=== PATIENT | male | born 1980 | race Caucasian/White ===

== ENCOUNTER 2022-07-19 12:48 | Emergency (ER) | payer OTHER, SELFPAY ==
--- NOTE | ~2022-07-19 | CT_ITS ---
EXAMINATION: CT brain wo con DATE: 07/19/2022 13:44 INDICATION: Head injury. TECHNIQUE: Computed tomography (CT) of the head was performed without intravenous contrast. The mA wa s adjusted according to patient size. Iterative reconstruction technique was employed. The dose-lengt h product was 832.33 mGy-cm. COMPARISON: None FINDINGS: There is no intracranial hemorrhage, acute infarction, or abnormal intracranial mass lesion . The ventricles are normal in size. The orbits are normal. There is mild mucosal thickening in the p aranasal sinuses. The mastoid air cells are normal. IMPRESSION: 1. Normal brain. Reviewed, dictated and finalized at location A. [employer] RECEIVABLE ASSOCIATE IMPRESSION: 1. Normal brain.
--- NOTE | ~2022-07-19 | CT_ITS ---
EXAMINATION: CT facial bones wo con DATE: 07/19/2022 13:44 INDICATION: Forehead injury. TECHNIQUE: Computed tomography (CT) of the facial bones and maxillofacial region was performed withou t intravenous contrast. Automated exposure control and iterative reconstruction technique were employ ed. The dose-length product was 473.88 mGy-cm. COMPARISON: None. FINDINGS: There is a laceration of the forehead. There is mild mucosal thickening in the paranasal si nuses. The orbits are normal. There are fractures of the nasal bones. There is leftward deviation of the nasal septum. There are carious lesions of teeth 1 and 3. T12 is broken and has periapical lucenc ies. There are carious lesions of teeth 17, 30, and 32. IMPRESSION: 1. Fractures of the nasal bones. 2. Dental disease. Reviewed, dictated and finalized at location A. [employer] TEST SUPERVISOR
[2022-07-19 12:56] VITALS: BP 172/94; PULSE 92; RESP 18; TEMP 36.6; O2SAT 100
--- NOTE | 2022-07-19 13:35 | ED.HEATRA ---
HPI - Head Injury General Chief complaint: Head Injury Stated complaint: facial laceration Time Seen by Provider: 07/19/22 13:01 Source: patient and RN notes reviewed Mode of arrival: ambulatory Limitations: no limitations History of Present Illness HPI Narrative: This is a 41 year old male who presents for evaluation of a facial laceration. 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 He reports LOC that was brief. He denies nausea, vomiting. He reports 2 facial lacerations. He is unsure of his last tetanus. He denies epistaxis Related Data Allergies Allergy/AdvReac Type Severity Reaction Status Date / Time No Known Allergies Allergy Verified 07/19/22 13:21 Review of Systems Review of Systems: All systems reviewed & are unremarkable except as noted in HPI and below PMFSH Past Medical History Medical History (Updated 07/19/22 @ 14:42 by Cori Garcia MD) Patient denies medical problems Surgical History Surgical History (Updated 07/19/22 @ 13:49 by Cori Garcia MD) No pertinent past surgical history Social History Social History (Updated 07/19/22 @ 22:16 by Cori Garcia MD) Smoking status: Never smoker Exam Const: General: no acute distress and alert Nutritional Appearance: well nourished Orientation/consciousness: patient oriented x3 Limitations: no limitations HENMT: Head: laceration (mid forehead laceration 4 cm, linear; there is 1.5 cm superificial nasal br) Ears: external ears normal and TM's normal bilaterally Face/Nose/Sinus: Normal external nose present Face and sinus: normal facial exam Mouth: Yes Normal oral and palatal mucosa present Throat: posterior oropharynx normal Eyes: Conjunctivae: conjunctivae normal Pupils: Equal, round and reactive pupils present EOM: EOMs intact bilaterally Neck: Neck: normal visual inspection Chest: Chest palpation & inspection: normal inspection of the chest Resp: Effort & Inspection: normal respiratory effort Auscultation: clear to auscultation bilaterally Cardio: Rate: regular rate Rhythm: regular rhythm Heart sounds: no murmurs Skin: Wounds: wounds noted (forehead laceration-) Other: nasal bridge laceration Neuro: General: patient oriented x3 and moves all extremities Cranial nerves: Yes CN's II-XII intact bilaterally Extrem: General: normal to inspection Psych: Mental Status: mental status grossly normal Affect: normal affect Attitude: cooperative Course Reevaluation(s) Date: 07/19/22 Time: 14:40 Vital Signs Vital signs: Vital Signs Temperature 97.8 F 07/19/22 12:56 Pulse Rate 92 07/19/22 12:56 Respiratory Rate 18 07/19/22 12:56 Blood Pressure 172/94 H 07/19/22 12:56 Pulse Oximetry 100 07/19/22 12:56 Temperature 97.8 F 07/19/22 12:56 Pulse Rate 92 07/19/22 12:56 Respiratory Rate 18 07/19/22 12:56 Blood Pressure 172/94 H 07/19/22 12:56 Pulse Oximetry 100 07/19/22 12:56 Procedures Laceration Laceration 1: Date: 07/19/22 Time: 14:39 Site: face Size (cm): 4 Description: linear Depth: simple, single layer Local Anesthetic: lidocaine 1% Amount of anesthesia used (mL): 2 Pre-repair: wound explored and irrigated ====== Skin Level ====== Size (cm): 5-0 Number of sutures: 7 Technique: simple, interrupted ====== Subcutaneous Layer ====== ====== Muscle Layer ====== ====== Tendon Layer ====== Dressing: triple antibiotic ointment Laceration 2: Date: 07/19/22 Time: 14:40 Site: face (nasal bridge) Size (cm): 1.5 Description: irregular Depth: simple, single layer Local Anesthetic: none ====== Skin Level ====== Skin layer closed with: dermabond ====== Subcutaneous Layer ====== ====== Muscle Layer ====== ====== Tendon Layer ====== [facility] -
[2022-07-19] MEDS: TETANUS,DIPHTHERIA,AC PERTUSSIS ADULT (0.5 ML) BOOSTRIX IM (13:49)
== END 2022-07-19 15:02 | disposition home or self-care (01) ==
PROVIDERS: Emergency Provider General Practice
DX: S01.81XA Laceration without foreign body of other part of head, initial encounter (principal); S01.21XA Laceration without foreign body of nose, initial encounter; S02.2XXA Fracture of nasal bones, initial encounter for closed fracture; Z23 Encounter for immunization; K02.9 Dental caries, unspecified; W22.8XXA Striking against or struck by other objects, initial encounter
CPT/HCPCS: 12014; 70450; 70486; 90471; 90715; 99284